=== PATIENT | female | born 1960 | race African-American/Black ===

== ENCOUNTER 2020-12-19 10:01 | Day surgery (SDC) | payer OTHER ==
[2020-12-19 10:10] LABS: Absolute Lymphocytes (CBC) 2.5 K/uL (0.7-4.9); Basophils % 0.9 % (0-1.3); Hematocrit 37.4 % (36.0-45.0); Lymphocytes % 27.3 % (15.3-44.8); MPV 9.1 fL (7.6-11.3); RBC Red Blood Cell Count 4.63 M/uL (3.86-4.86)
[2020-12-19 10:25] LABS: BUN Blood Urea Nitrogen 13 mg/dL (7-18); Bicarbonate 29 mmol/L (21-32); Glucose Level 132 mg/dL (74-106); Potassium 3.7 mmol/L (3.5-5.1); Sodium Level 144 mmol/L (136-145)
[2020-12-19 10:31] LABS: Urine Appearance CLEAR; Urine Bilirubin NEGATIVE (NEG); Urine Blood NEGATIVE (NEG); Urine Color YELLOW; Urine Glucose TRACE (NEG); Urine Microscopic Reflex ORDER UMIC; Urine Protein NEGATIVE (NEG); Urine Urobilinogen 0.2 mg/dL (0.2-1.0)
--- NOTE | 2020-12-19 10:46 | RAD REPORT ---
EXAM DESCRIPTION: Garry Savage (2 Views)12/19/2020 9:48 am CLINICAL HISTORY: Preop/hypertension COMPARISON: None FINDINGS: The lungs appear clear of acute infiltrate. The heart is mildly enlarged IMPRESSION: No acute abnormalities displayed
[2020-12-19 10:48] LABS: Urine Bacteria <20 /HPF (<20); Urine Mucus 1+ /HPF (NONE SEEN); Urine RBC <5 /HPF (NONE SEEN)
[2020-12-19] MEDS ORDERED: SCOPOLAMINE HYDROBROMIDE PATCH TD ONE (10:52)
[2020-12-19] MEDS ORDERED: NA CHLORIDE 0.9% 1,000 ML ONE ×3 (10:52→15:06)
[2020-12-19] MEDS ORDERED: CEFAZOLIN/SWI 1gm 1 GM/10 ML SYR ONE (10:52)
[2020-12-19] MEDS: EPINEPHRINE/PF 1 MG/ML AMP ONE ×2 (11:50→12:37)
[2020-12-19] MEDS ORDERED: propofoL 200 MG/20 ML VIAL IV ONE (12:02)
[2020-12-19] MEDS ORDERED: MIDAZOLAM HCL 2 MG/2 ML INJ ONE (12:02)
[2020-12-19] MEDS ORDERED: FENTANYL CITR 100 MCG/2 ML ONE ×2 (12:02→13:17)
[2020-12-19] MEDS ORDERED: ONDANSETRON 4 MG/2 ML VIAL ONE ×2 (12:03→14:53)
[2020-12-19] MEDS ORDERED: dexAMETHasone 10 MG/ML VIAL ONE (12:03)
[2020-12-19] MEDS ORDERED: LIDOCAINE 2% MPF 5 ML VIAL ONE (12:04)
[2020-12-19] MEDS ORDERED: KETOROLAC 30 MG/ML INJ ONE (12:04)
[2020-12-19] MEDS ORDERED: ROCURONIUM 50 MG/5 ML VIAL IV ONE (12:04)
[2020-12-19] MEDS ORDERED: EPINEPHRINE/PF 1 MG/ML AMP ONE ×4 (12:21→12:22)
[2020-12-19] MEDS ORDERED: NA CHLORIDE 0.9% 3,000 ML ONE (12:23)
[2020-12-19] MEDS ORDERED: GLYCOPYRROLATE 0.2 MG/ML SYR ONE (13:54)
[2020-12-19] MEDS ORDERED: NEOSTIGMINE 1 MG/ML -5 ML ONE (13:54)
[2020-12-19] MEDS: FENTANYL CITR 100 MCG/2 ML ONE ×2 (14:00→14:09)
[2020-12-19] MEDS: HYDROMORPHONE HCL 1 MG/ML INJ ONE ×6 (14:14→15:01)
[2020-12-19] MEDS ORDERED: NA CHLORIDE 0.9% 500 ML ONE (14:44)
[2020-12-19] MEDS ORDERED: CODEINE 30MG/APAP 300MG TAB ONE (16:02)
[2020-12-19 17:35] VITALS: BP 136/78; TEMP 97.4; O2SAT 100
--- NOTE | 2020-12-19 18:31 | OP ---
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 Postoperative Diagnosis: Lipodystrophy of the abdomen and flanks. Procedure Performed: Tumescent liposuction, 5 L in and 5 L out. Anesthesia: General. Procedure In Detail: After satisfactory induction of general anesthesia, she was prepped with DuraPr ep and dry sterile drapes applied in the usual manner. The incision made near the right and left ant erior iliac spine and the area of the right and left costal margins. The right flank, left flank, ri ght and left abdomen and pubic area were all infused with 1 L of normal saline with epinephrine each and then liposuction was performed. 1 L was removed from all 5 sites. The top 2 incisions were clos ed with 4-0 PDS. Two other wounds left open for drainage. Abdominal binder was placed. The patient tolerated procedure well and returned to recovery. REINALDO/ANTHONY Voice ID: [id number] Report ID: [id number]
--- NOTE | 2020-12-19 23:58 | EKG ---
Test Date: 2020-12-19 Test Time: 09:55:48 [employer] Tender: ASHLEY MEASUREMENT RESULTS: Intervals: Rate: 55 UT: 174 QRSD: 90 QT: 466 QTc: 445 [place]: P: 67 UT: 174 QRS: 27 T: 37 INTERPRETIVE STATEMENTS: Sinus bradycardia with marked sinus arrhythmia Otherwise normal ECG No previous ECG available for comparison Electronically Signed On 12-19-20 23:57:33 RENTAL COUNTER CLERK by Ry Tyler
== END 2020-12-19 17:10 | disposition home or self-care (01) ==
LOC: OR 10:01
PROVIDERS: ATTEND Specialist
PROC: 0J083ZZ Alteration of Abdomen Subcutaneous Tissue and Fascia, Percutaneous Approach (ICD-10-PCS; principal; 2020-12-19 11:45)
DX: E88.1 Lipodystrophy, not elsewhere classified (principal); Z20.822 Contact with and (suspected) exposure to COVID-19
CPT/HCPCS: 36415; 71046; 80048; 81003; 81015; 82947; 85025; 93005; J0171; J0690; J1100; J1170; J2250; J2405; J2704; J2710; J3010; J7030; J7040